=== PATIENT | male | born 1980 | race Caucasian/White ===

== ENCOUNTER 2017-05-10 20:48 | Emergency (ER) | payer SELFPAY ==
[2017-05-10 20:51] VITALS: BP 159/82; PULSE 73; RESP 16; TEMP 98; O2SAT 97
[2017-05-10 21:02] VITALS: BP 142/79; PULSE 71; RESP 16; O2SAT 98
[2017-05-10] MEDS ORDERED: SODIUM CHLOR 0.9% 1000 ML INJ 1,000 ML IV ONE (21:04)
--- NOTE | 2017-05-10 21:07 | PD ---
HPI Chief Complaint: Flank/Kidney Pain Time Seen by Provider: 21:00 Travel History International Travel<30 days: No Contact w/Intl Traveler<30days: No Traveled to known affect area: No History of Present Illness HPI C/O RT FLANK PAIN, RAD TO RT GROIN AREA, 02/14, ONSET LESS THAN 30MIN WOVEN [employer], DENIES ANY ALLEVIATING/AGGRAVATING FACTORS. DENIES ASSOC SYMPTOMS OF FEVER/ COUGH/SANTANA/HEMATURIA/FOUL SMELLING URINE/ PFSH Social History Tobacco Use: No Allergies-Medications (Allergen,Severity, Reaction): Coded Allergies: No Known Allergies (Unverified , 05/10/17) Reported Meds & Prescriptions Reported Meds & Active Scripts Active No Active Prescriptions or Reported Medications Review of Systems Except as stated in HPI: all other systems reviewed are Neg General / Constitutional: No: Fever Eyes: No: Visual changes HENT: No: Headaches Cardiovascular: No: Chest Pain or Discomfort Respiratory: No: Shortness of Breath Gastrointestinal: No: Abdominal Pain Genitourinary: Positive: Flank Pain Musculoskeletal: No: Pain Skin: No Rash Neurologic: No: Weakness Psychiatric: No: Depression Endocrine: No: Polydipsia Hematologic/Lymphatic: No: Easy Bruising Physical Exam Narrative GENERAL: SKIN: Warm and dry. HEAD: Atraumatic. Normocephalic. EYES: Pupils equal and round. No scleral icterus. No injection or drainage. ENT: No nasal bleeding or discharge. Mucous membranes pink and moist. NECK: Trachea midline. No JVD. CARDIOVASCULAR: Regular rate and rhythm. RESPIRATORY: No accessory muscle use. Clear to auscultation. Breath sounds equal bilaterally. GASTROINTESTINAL: Abdomen soft, non-tender, nondistended. MUSCULOSKELETAL: Extremities without clubbing, cyanosis, or edema. No obvious deformities. NEUROLOGICAL: Awake and alert. No obvious cranial nerve deficits. Motor grossly within normal limits. Five out of 5 muscle strength in the arms and legs. Normal speech. PSYCHIATRIC: Appropriate mood and affect; insight and judgment normal. Data Data Last Documented VS Orders Orders Complete Blood Count With Diff (05/10/17 21:04) Basic Metabolic Panel (Bmp) (05/10/17 21:04) Urinalysis - C+S If Indicated (05/10/17 21:04) Ct Abd/Pel W/O Iv Contrast (05/10/17 21:04) Ecg Monitoring (05/10/17 21:04) Iv Access Insert/Monitor (05/10/17 21:04) Ondansetron Inj (Zofran Inj) (05/10/17 21:15) Sodium Chlor 0.9% 1000 Ml Inj (Ns 1000 M (05/10/17 21:04) Lipase (05/10/17 21:04) Morphine Inj (Morphine Inj) (05/10/17 21:30) Ed Discharge Order (05/10/17 21:56) Labs Laboratory Tests Test 05/10/17 21:00 05/10/17 21:32 White Blood Count 6.7 TH/MM3 Red Blood Count 5.42 MIL/MM3 Hemoglobin 15.6 GM/DL Hematocrit 46.1 % Mean Corpuscular Volume 85.1 FL Mean Corpuscular Hemoglobin 28.8 PG Mean Corpuscular Hemoglobin Concent 33.8 % Red Cell Distribution Width 12.8 % Platelet Count 341 TH/MM3 Mean Platelet Volume 7.0 FL Neutrophils (%) (Auto) 50.3 % Lymphocytes (%) (Auto) 41.7 % Monocytes (%) (Auto) 5.6 % Eosinophils (%) (Auto) 2.1 % Basophils (%) (Auto) 0.3 % Neutrophils # (Auto) 3.4 TH/MM3 Lymphocytes # (Auto) 2.8 TH/MM3 Monocytes # (Auto) 0.4 TH/MM3 Eosinophils # (Auto) 0.1 TH/MM3 Basophils # (Auto) 0.0 TH/MM3 CBC Comment DIFF FINAL Differential Comment Blood Urea Nitrogen 10 MG/DL Creatinine 0.81 MG/DL Random Glucose 114 MG/DL Calcium Level 9.5 MG/DL Sodium Level 140 MEQ/L Potassium Level 3.8 MEQ/L Chloride Level 106 MEQ/L Carbon Dioxide Level 24.0 MEQ/L Anion Gap 10 MEQ/L Estimat Glomerular Filtration Rate 108 ML/MIN Lipase 206 U/L Urine Collection Type VOIDED Urine Color YELLOW Urine Turbidity CLEAR Urine pH 6.0 Urine Specific [place] 1.027 Urine Protein NEG mg/dL Urine Glucose (UA) NEG mg/dL Urine Ketones NEG mg/dL Urine Occult Blood LARGE Urine Nitrite NEG Urine Bilirubin NEG Urine Leukocyte Esterase NEG Urine RBC 4-9 /hpf Microscopic Urinalysis Comment CULT NOT INDICATED Urine Collection Time 2132 MDM Medical Decision Making Medical Screen Exam Complete: Yes Emergency Medical Condition: Yes Medical Record Reviewed: Yes Differential Diagnosis PYELO V UTI V KIDNEY STONES Narrative Course NO E/O UTI OR PYELO, NL RENAL FUNCTION...CT SHOWS PASSED RENAL STONE Diagnosis Primary Impression: PASSED URETERAL STONE Patient Instructions: General Instructions, Kidney Stones (ED) Scripts No Active Prescriptions or Reported Meds Disposition: 01 DISCHARGE HOME Condition: Stable Daniel Aguilar MD May 10, 2017 21:07
[2017-05-10] MEDS ORDERED: ONDANSETRON HCL 4 MG/2 ML VIAL IV PUSH ONE (21:15)
[2017-05-10] MEDS ORDERED: MORPHINE SULFATE 4 MG/ML INJ IV PUSH ONE (21:15)
[2017-05-10 21:17] LABS: AUTOMATED NEUTROPHIL # 3.4 TH/MM3 (1.8-7.7); BASOPHIL % 0.3 % (0.0-2.0); EOSINOPHIL # 0.1 TH/MM3 (0-0.4); EOSINOPHIL % 2.1 % (0.0-4.0); HEMATOCRIT 46.1 % (39.0-51.0); HEMO FLAGS DIFF FINAL; LYMPH % 41.7 % (9.0-44.0); LYMPHOCYTE # 2.8 TH/MM3 (1.0-4.8); MEAN CELL VOLUME 85.1 FL (80.0-100.0); MEAN CORPUSCULAR HEMOGLOBIN 28.8 PG (27.0-34.0); MEAN CORPUSCULAR HGB CONC 33.8 % (32.0-36.0); MONO % 5.6 % (0.0-8.0); NEUT % 50.3 % (16.0-70.0); PLATELET COUNT 341 TH/MM3 (150-450); RED BLOOD COUNT 5.42 MIL/MM3 (4.50-5.90); RED CELL DISTRIBUTION WIDTH 12.8 % (11.6-17.2); WHITE BLOOD COUNT 6.7 TH/MM3 (4.0-11.0)
[2017-05-10 21:25] LABS: POTASSIUM 3.8 MEQ/L (3.5-5.1)
[2017-05-10] MEDS ORDERED: MORPHINE SULFATE 2 MG/ML INJ IV ONE (21:30)
[2017-05-10 21:34] LABS: BLOOD, URINE LARGE (NEG); GLUCOSE,URINE NEG (NEG); KETONE, URINE NEG (NEG); NITRITE,URINE NEG (NEG)
--- NOTE | 2017-05-10 21:42 | RADRPT ---
EXAM DATE/TIME: 05/10/2017 21:18 [facility] COMPARISON: No previous studies available for comparison. INDICATIONS : Right flank pain for one day. ORAL CONTRAST: No oral contrast ingested. RADIATION DOSE: 27.93 CTDIvol (mGy) ; Patient body habitus MEDICAL HISTORY : None SURGICAL HISTORY : None. ENCOUNTER: Initial ACUITY: 1 day PAIN SCALE: 7/10 LOCATION: Right flank TECHNIQUE: Volumetric scanning of the abdomen and pelvis was performed. Using automated exposure control and ad justment of the mA and/or kV according to patient size, radiation dose was kept as low as reasonably achievable to obtain optimal diagnostic quality images. DICOM format image data is available electro nically for review and comparison. FINDINGS: LOWER LUNGS: The visualized lower lungs are clear. LIVER: Homogeneous density without lesion. There is no dilation of the biliary tree. A solitary calcified g allstone. SPLEEN: Normal size without lesion. PANCREAS: Within normal limits. KIDNEYS: Normal in size and shape. There is no mass, stone, or hydronephrosis. ADRENAL GLANDS: Within normal limits. VASCULAR: There is no aortic aneurysm. BOWEL/MESENTERY: The stomach, small bowel, and colon demonstrate no acute abnormality. There is no free intraperitone al air or fluid. ABDOMINAL WALL: Within normal limits. RETROPERITONEUM: There is no lymphadenopathy. BLADDER: No wall thickening or mass. Small stone in the central bladder REPRODUCTIVE: Within normal limits. INGUINAL: There is no lymphadenopathy or hernia. MUSCULOSKELETAL: Within normal limits for patient age. CONCLUSION: 2-3 mm stone in the central posterior aspect of the bladder likely recently passed renal calculus. Waldo Marie MD on May 10, 2017 at 21:39 Board Certified Radiologist. This report was verified electronically.
[2017-05-10 21:47] LABS: METHOD OF COLLECTION VOIDED; URINE COLOR YELLOW (YELLW/STRAW)
[2017-05-10 21:49] LABS: COMMENT (UR) CULT NOT INDICATED; CULTURE IF INDICATED CULT NOT INDICATED
[2017-05-10 22:09] VITALS: BP 120/69; TEMP 98
== END 2017-05-10 22:12 | disposition home or self-care (01) ==
LOC: PHED 20:48
DX: R10.9 Unspecified abdominal pain (principal)
CPT/HCPCS: 74176; 80048; 81001; 83690; 85025; 96361; 96374; 96375; 99285; J2270; J2405; J7030

== ENCOUNTER 2017-11-26 15:21 | Emergency (ER) | payer OTHER ==
[~2017-11-26] VITALS: Ht 182.9 cm; Wt 125.0 kg
[2017-11-26 15:25] VITALS: BP 158/106; PULSE 111; RESP 16; TEMP 98.1; O2SAT 96
[2017-11-26] MEDS ORDERED: EFFE150C PO (15:54)
[2017-11-26] MEDS ORDERED: MEDR4PAK PO (16:13)
--- NOTE | 2017-11-26 16:21 | PD ---
HPI Chief Complaint: ENT Complaint Time Seen by Provider: 16:01 Travel History International Travel<30 days: No Contact w/Intl Traveler<30days: No Traveled to known affect area: No History of Present Illness HPI 37y male presents emergency department for evaluation of left ear pain and sore throat that has been persistent for 3 weeks. Patient states that he went to a [facility] where he was treated with Augmentin. Says that the sore throat and ear pain resolved with the antibiotics but returned a couple of days afterwards . Patient states compliance with his antibiotics and his last dose was approximately 5-6 days ago. He denies fevers or chills. Says he has had a somewhat dry cough but denies chest pain or shortness of breath. He has not taken any other medications to resolve his symptoms. Says he takes Effexor daily but denies any other chronic medical issues. His primary care physician is at the [facility]. [facility] Past Medical History Anxiety: Yes (PTSD) Depression: Yes Diminished Hearing: No Immunizations Current: Yes Tetanus Vaccination: < 5 Years Influenza Vaccination: Yes Social History Alcohol Use: Yes (occas. beer) Tobacco Use: No (quit 10 yrs ago smoked cigs) Substance Use: No Allergies-Medications (Allergen,Severity, Reaction): Coded Allergies: No Known Allergies (Unverified , 11/26/17) Reported Meds & Prescriptions Reported Meds & Active Scripts Active Medrol Dosepak (Methylprednisolone) 4 Mg Dspk 4 Mg PO DIRECTED Per Pharmacist direction Reported Effexor XR 24 HR (Venlafaxine HCl) 150 Mg Cap 150 Mg PO DAILY Review of Systems Except as stated in HPI: all other systems reviewed are Neg Physical Exam Narrative GENERAL: Well-nourished, well-developed patient, in NAD SKIN: Focused skin assessment warm/dry. No rashes or lesions. HEAD: Normocephalic. Atraumatic. EYES: No scleral icterus. No injection or drainage. PERRLA, EOMI THROAT: No pharyngeal injection, exudates, or tonsillar hypertrophy. Airway is patent. NECK: Supple, trachea midline. No JVD. No meningismus. Posterior auricular lymphadenopathy on the left. Tympanic membranes appear slightly bulging with serous fluid, nonerythematous nonperforated. No tenderness to the tragus or auricle. CARDIOVASCULAR: Regular rate and rhythm without murmurs, gallops, or rubs. RESPIRATORY: Breath sounds equal bilaterally. No accessory muscle use. No wheezes, rales, or rhonchi MUSCULOSKELETAL: No cyanosis, or edema. BACK: Nontender without obvious deformity. No CVA tenderness. Data Data Last Documented VS Vital Signs Date Time Temp Pulse Resp B/P (MAP) Pulse Ox O2 Delivery O2 Flow Rate FiO2 11/26/17 15:50 16 11/26/17 15:25 98.1 111 158/106 (123) 96 MDM Medical Decision Making Medical Screen Exam Complete: Yes Emergency Medical Condition: Yes Differential Diagnosis Allergic rhinitis, upper respiratory infection, viral pharyngitis, influenza Narrative Course 37y male presents emergency department for evaluation of left ear pain and sore throat that has been persistent for 3 weeks. Patient states that he went to a [facility] where he was treated with Augmentin. Says that the sore throat and ear pain resolved with the antibiotics but returned a couple of days afterwards. Patient states compliance with his antibiotics and his last dose was approximately 5-6 days ago. He denies fevers or chills. Says he has had a somewhat dry cough but denies chest pain or shortness of breath. He has not taken any other medications to resolve his symptoms. Says he takes Effexor daily but denies any other chronic medical issues. His primary care physician is at the [facility]. Vital signs are stable. Physical exam findings consistent with slight bulging of the tympanic membranes with clear, serous fluid. Mild tenderness palpation of the left posterior auricular lymph nodes, no tonsillar hypertrophy or exudates. No obvious nasal drainage. Lungs clear to auscultation bilaterally. Based off of history and physical, I suspect that patient has allergic otitis media. I do not believe that he would benefit from any more antibiotics at this point. He has not tried any [id number] medications. I believe that he would benefit from allergy medications combination with steroids. I recommended that he follow-up with his primary care physician at the [facility]. Return for worsening or persistent symptoms. Diagnosis Primary Impression: Allergic otitis media Qualified Codes: H65.113 - Acute and subacute allergic otitis media (mucoid) ( sanguinous) (serous), bilateral Referrals: Primary Care Physician Departure Forms: Tests/Procedures, Work Release Enter return to work date: November 28, 2017 Additional Instructions: You may use a drop of honey and lemon in a cup of warm water to soothe your cough and ear pain. This works best if you use this every day. Ensure good hydration and a nutritious diet. Note that viral infection symptoms may last for several weeks if you have a viral illness. Follow up with your primary physician within 2-3 days. Return to the ED for worsening or persistent symptoms. Consider using Zyrtec, Claritin, Nathalie daily for possible allergic symptoms. Scripts Methylprednisolone Dosepak (Medrol Dosepak) 4 Mg Dspk 4 MG PO DIRECTED, #1 DSPK 0 Refills Per Pharmacist direction Prov: Nato Park MD 11/26/17 Disposition: 01 DISCHARGE HOME Condition: Stable Nedra Mason November 26, 2017 16:21
== END 2017-11-26 16:32 | disposition home or self-care (01) ==
LOC: PHEFT 15:21
DX: H65.113 Acute and subacute allergic otitis media (mucoid) (sanguinous) (serous), bilateral (principal); J02.9 Acute pharyngitis, unspecified
CPT/HCPCS: 99283